=== PATIENT | female | born 1990 ===

== ENCOUNTER 2025-04-25 13:15 | Emergency (ER) | payer OTHER ==
[~2025-04-25] VITALS: Ht 170.2 cm; Wt 65.8 kg
[2025-04-25 16:25] LABS: BASO % 0.3 % (0.1-1.2); EOS # 0.03 (0.04-0.54); EOS % 0.3 % (0.7-7.0); LYMPH # 2.38 (1.18-3.74); LYMPH % 22.9 % (19.3-53.1); MEAN PLATELET VOLUME 11.40 fl (9.4-12.4); MONO # 0.62 (0.24-0.82); MONO % 6.0 % (4.7-12.5); NEUT # 7.31 (1.56-6.13); NEUT % 70.3 % (34.0-71.1); RED CELL DISTRIBUTION WIDTH 13.3 % (11.6-14.4)
[2025-04-25 16:52] LABS: ALT/SGPT 16.0 U/L (12-78); AST/SGOT 16.0 U/L (15-37); BILIRUBIN TOTAL 0.88 mg/dL (0.3-1.2); BILIRUBIN,CONJUGATED 0.24 mg/dL (0.0-0.2); BUN CREA RATIO 15.0 (7.0-25.0); CREATININE SERUM 0.68 mg/dL (0.55-1.02); GFR 99.65; GLOBULINA 3.4 G/DL (2.4-3.5); GLUCOSE FASTING 85.0 mg/dL (65-100); OSMOLALITY SERUM 278.0 MOSM/KG (275-295)
== END 2025-04-25 17:25 | disposition home or self-care (01) ==
LOC: ER 13:15
PROVIDERS: Emergency Medicine
DX: R55 Syncope and collapse (principal); R53.1 Weakness